=== PATIENT | male | born 1940 | race Caucasian/White ===

== ENCOUNTER 2016-09-09 17:06 | Observation (INO) ==
[2016-09-09] MEDS ORDERED: 0.9 % Sodium Chloride 500 ML IVC ONE (17:20)
--- NOTE | 2016-09-09 17:25 | Emergency Department Note ---
Disposition Clinical Impression: Acute on chronic renal failure, Hyperkalemia Disposition: Admitted As Inpatient Condition: Good [facility] Provider[facility] - Forms: ED Satisfaction Letter Recheck wound or abnormal lab - General Chief Complaint: ED Recheck/Abnormal Lab/Rx Stated Complaint: dehydration/increased K+ Time Seen by Provider: 09/09/16 17:19 Source: patient, family Mode of arrival: private vehicle Limitations: no limitations Nursing Notes Reviewed: Yes Vital Signs Reviewed: Yes - History of Present Illness HPI Narrative: Patient reports that he has had some increased weakness and just feeling unsteady. He saw his oncologist and had blood work drawn today and was called that he needed to come in because he had an elevated potassium and evidence for dehydration. He denies any nausea, vomiting or diarrhea he denies fever, chills , chest pain or shortness of breath. He has not had cough or any recent change in medicines. He does have difficulty swallowing chronically and has a feeding tube. He states he does have history of aortic valve problems for which she does need an aortic valve replacement this was to be done after he has further cancer surgery. He denies any extremity swelling or pains. He has not had any type of recent fall, injury, confusion or visual changes. He feels generally poorly but only more poor than usual. Pt Subjective Complaint: abnormal lab(s) Initial Visit (ago): hour(s) Initial Visit For: other (Routine oncology checkup) Returns Today for: other (Called for abnormal labs) Symptoms Since Prior Visit: no new symptoms Context: called for abnormal lab result Associated symptoms: malaise - Related Data Home Medications Medication Instructions Recorded Confirmed Metformin [Glucophage] 850 mg PO BID 04/09/15 09/09/16 Albuterol Sulfate [Proair 2 puff IH Q4H PRN 04/10/15 09/09/16 Respiclick] Aspirin 81 mg PO DAILY 04/10/15 09/09/16 Finasteride [Proscar] 5 mg PO DAILY 04/10/15 09/09/16 Lisinopril [Zestril] 20 mg PO BID 04/10/15 09/09/16 Terazosin [Hytrin] 5 mg PO HS 04/10/15 09/09/16 Acetaminophen [Tylenol] 650 mg PO Q6HR PRN 12/26/15 09/09/16 Atorvastatin Calcium [Lipitor] 20 mg PO HS 12/26/15 09/09/16 Pantoprazole Sodium [Protonix] 40 mg PO DAILY 12/26/15 09/09/16 Cholecalciferol (D-3) [Vitamin D] 1,000 unit PO DAILY 04/03/16 09/09/16 Docusate [Colace] 100 mg PO BID PRN 04/03/16 09/09/16 Fluticasone Propionate Nasal 2 spr NS DAILY PRN 04/03/16 09/09/16 [Flonase] Latanoprost [Xalatan] 1 drop RIGHT EYE HS 04/03/16 09/09/16 Metoprolol [Lopressor] 25 mg PO BID 07/03/16 09/09/16 Polyethylene Glycol 3350 [MiraLAX] 17 gm PO PRN PRN 09/09/16 09/09/16 Previous Rx's Medication Instructions Recorded Magic Mouthwash [Magic Mouthwash 10 ml PO QID PRN #240 ml 07/17/16 BLM] Ondansetron [Zofran] 4 mg PO Q8HR PRN #90 tablet 07/17/16 Prochlorperazine Maleate 10 mg PO Q8HR PRN #90 tablet 07/17/16 [Compazine] Oxycodone HCl [Oxycodone HCl ER] 15 mg PO BID #60 tab.er.12h 08/23/16 Promethazine [Phenergan] 25 mg PO Q8HR PRN #90 tablet 08/26/16 HYDROcodone/Acet 7.5/325 mg [[place] 1 - 2 tab PO Q4H PRN #120 tablet 08/27/16 7.5-325 mg] Metoclopramide [Reglan] 10 mg PO QIDAC #120 tablet 09/03/16 Allergies Allergy/AdvReac Type Severity Reaction Status Date / Time No Known Allergies Allergy Verified 07/26/16 03:01 All systems ED: reviewed and negative except as stated. Past Medical History - Past Medical History Attestation: Yes The following information was validated with the patient. Source: patient, old records reviewed, nursing notes reviewed Medical history: Reports: arthritis, asthma, cancer (Head and neck), COPD, coronary artery disease, diabetes, hyperlipidemia, hypertension, myocardial infarction, valvular heart disease, other Surgical history: Reports: angioplasty/stent, cataract, other (Radiation treatment for head and neck cancer) Psychiatric history: Reports: no psych history - Social History Smoking Status: Former smoker Smokeless Tobacco Status: No Alcohol use: Reports: none Drug use: Reports: none Physical Exam - General Limitations: no limitations General appearance: alert, in no apparent distress - Head Head exam: atraumatic, normocephalic, normal inspection - Eye Eye exam: Present: normal appearance, PERRL, EOMI - ENT ENT exam: normal exam, normal oropharynx, mucous membranes moist - Neck Neck exam: Present: normal inspection, full ROM, trachea midline - Chest Chest inspection: Present: normal inspection, symmetric chest wall rise - Respiratory Respiratory exam: Present: normal lung sounds bilaterally. Absent: respiratory distress, wheezes, prolonged expiratory phase - Cardiovascular Cardiovascular exam: Present: regular rate, normal rhythm, normal heart sounds. Absent: tachycardia - Abdominal Exam Abdominal exam: Present: soft, Non-Tender, normal bowel sounds. Absent: tenderness, distention, guarding, rebound, rigidity - Extremities Exam Extremities exam: Present: normal inspection, full ROM, normal capillary refill. Absent: tenderness, pedal edema - Expanded Lower Extremity Exam Neurovascular/Tendon exam: Present: normal capillary refill. Absent: motor deficit, sensory deficit, tendon deficit Gait: observed and normal - Neurological Exam Neurological exam: Present: alert, oriented X3 - Psychiatric Psychiatric exam: Present: normal affect, normal mood - Skin Skin exam: Present: warm, dry, intact, normal color. Absent: diaphoresis, erythema Course Course Narrative: 0616: Call discussed with Dr. Altman. He has accepted this patient in observation to the hospital. He does wish to continue IV fluids, administer one dose of Kayexalate and recheck a CBC and basic chemistries. Verbal orders are obtained for this observation. Vital Signs Temperature 98.0 F 09/09/16 17:07 Pulse Rate 84 09/09/16 17:07 Respiratory Rate 18 09/09/16 17:07 Blood Pressure 99/58 09/09/16 17:07 O2 Sat by Pulse Oximetry 97 09/09/16 17:07 Temperature 98.0 F 09/09/16 17:09 Pulse Rate 66 09/09/16 17:39 Respiratory Rate 17 09/09/16 17:39 Blood Pressure 109/60 09/09/16 17:39 O2 Sat by Pulse Oximetry 97 09/09/16 17:39 Oxygen Delivery Oxygen Delivery Room Air Recheck wound or abnormal lab - Medical Records Medical records reviewed: Yes I reviewed the patient's medical records. - Lab Data Lab results reviewed: Yes I reviewed the patient's lab results. Result diagrams: 09/09/16 17:30 Lab Results 09/09/16 Range/Units 17:30 Sodium 143 (136-145) mEq/L Potassium 6.1 H (3.5-4.5) mEq/L Chloride 109 (98-109) mEq/L Carbon Dioxide 23 (19-29) mEq/L BUN 61 H (8-26) mg/dL Creatinine 2.72 H (0.72-1.25) mg/dL Est GFR ( Amer) 28 L (> 60) Est GFR (Non-Af Amer) 23 L (> 60) BUN/Creatinine Ratio 22 (6-26) Glucose 111 H (70-99) mg/dL Calculated Osmolality 314 H (280-300) Calcium 9.2 (8.6-10.8) mg/dL
[2016-09-09 17:52] LABS: Calcium 9.2 mg/dL (8.6-10.8); Potassium 6.1 mEq/L (3.5-4.5)
[2016-09-09] MEDS ORDERED: Dextrose Gel 15 GM PO PRN ×2 (18:53)
[2016-09-09] MEDS ORDERED: *HR* Dextrose 50 % in Water (Syg) 50 ML SYRINGE IVP PRN (18:53)
[2016-09-09] MEDS ORDERED: Naloxone 0.4 MG/ML INJ IVP PRN (18:53)
[2016-09-09] MEDS ORDERED: Ondansetron 4 MG/2 ML VIAL IVP PRN (18:53)
[2016-09-09] MEDS ORDERED: D5% in Water 1,000 ML IV PRN (18:53)
[2016-09-09] MEDS ORDERED: *HR* HYDROcodone/Acet 7.5/325 mg TABLET PO PRN (20:41)
[2016-09-09] MEDS: 0.9 % Sodium Chloride 1,000 ML IVC SCH (20:58)
[2016-09-10] MEDS: 0.9 % Sodium Chloride 1,000 ML IVC SCH (03:31)
[2016-09-10 06:01] LABS: Basophils % 0.3 %; Hematocrit 24.6 % (37.5-50.1); Hemoglobin 7.7 g/dL (12.9-16.9); Immature Granulocytes % 0.3 % (0-4); Lymphocytes # 0.4 K/mcL (0.6-4.6); Mean Corpuscular HGB Conc 31.3 g/dL (31.6-35.5); Mean Corpuscular Hemoglobin 28.4 pg (28.0-33.3); Mean Corpuscular Volume 90.8 fL (83.0-100.0); Mean Platelet Volume 10.1 fL (9.4-12.4); Monocytes # 0.3 K/mcL (0.0-1.3); Monocytes % 10.4 %; Platelet Count 139 K/mcL (140-400); Red Blood Count 2.71 M/mcL (4.19-5.50); Red Cell Distribution Width 16.8 % (11.5-14.5)
[2016-09-10 06:08] LABS: Neutrophils # 2.4 K/mcL (1.6-8.9)
[2016-09-10 06:21] LABS: Calcium 8.6 mg/dL (8.6-10.8); Potassium 4.9 mEq/L (3.5-4.5)
[2016-09-10 06:41] VITALS: BP 140/71
[2016-09-10] MEDS ORDERED: Insulin LISPRO 300 UNITS/3 ML VIAL SQ SCH (07:30)
--- NOTE | 2016-09-10 15:19 | Internal Med History&Physical ---
Date of Encounter: 09/10/16 Time of Encounter: 15:17 Internal Medicine - H&P: HPI Chief complaint: abnormal labs Admitted From: Home Plans for Post Hospital Care: Home History of present illness: Mr. Hugo is a 76 year old male who was notified by oncologist office to go to emergency room because of abnormal labs drawn earlier today. He was admitted to [facility] floor for ongoing care needs. Past Med Surg Social Fam HX - Past Medical History Medical history: arthritis, asthma, cancer, COPD, coronary artery disease, diabetes, hyperlipidemia, hypertension, myocardial infarction, valvular heart disease, other Psychiatric history: no psych history - Past Surgical History Surgical History: angioplasty/stent, cataract, other - Social History Smoking Status: Former smoker Smokeless Tobacco Status: No Alcohol use: none Drug use: none - Family History Mother Living Status: Hx Family Cardiac Disorders: Yes Internal Medicine - H&P: Meds Metformin [Glucophage] 850 mg PO BID 04/09/15 [History] Albuterol Sulfate [Proair Respiclick] 2 puff IH Q4H PRN 04/10/15 [History] Aspirin 81 mg PO DAILY 04/10/15 [History] Finasteride [Proscar] 5 mg PO DAILY 04/10/15 [History] Lisinopril [Zestril] 20 mg PO BID 04/10/15 [History] Terazosin [Hytrin] 5 mg PO HS 04/10/15 [History] Acetaminophen [Tylenol] 650 mg PO Q6HR PRN 12/26/15 [History] Atorvastatin Calcium [Lipitor] 20 mg PO HS 12/26/15 [History] Pantoprazole Sodium [Protonix] 40 mg PO DAILY 12/26/15 [History] Cholecalciferol (D-3) [Vitamin D] 1,000 unit PO DAILY 04/03/16 [History] Docusate [Colace] 100 mg PO BID PRN 04/03/16 [History] Fluticasone Propionate Nasal [Flonase] 2 spr NS DAILY PRN 04/03/16 [History] Latanoprost [Xalatan] 1 drop RIGHT EYE HS 04/03/16 [History] Metoprolol [Lopressor] 25 mg PO BID 07/03/16 [History] Magic Mouthwash [Magic Mouthwash BLM] 10 ml PO QID PRN #240 ml 07/17/16 [Rx] Ondansetron [Zofran] 4 mg PO Q8HR PRN #90 tablet 07/17/16 [Rx] Prochlorperazine Maleate [Compazine] 10 mg PO Q8HR PRN #90 tablet 07/17/16 [Rx] Oxycodone HCl [Oxycodone HCl ER] 15 mg PO BID #60 tab.er.12h 08/23/16 [Rx] Promethazine [Phenergan] 25 mg PO Q8HR PRN #90 tablet 08/26/16 [Rx] HYDROcodone/Acet 7.5/325 mg [[place] 7.5-325 mg] 1 - 2 tab PO Q4H PRN #120 tablet 08/27/16 [Rx] Metoclopramide [Reglan] 10 mg PO QIDAC #120 tablet 09/03/16 [Rx] Polyethylene Glycol 3350 [MiraLAX] 17 gm PO PRN PRN 09/09/16 [History] Allergies No Known Allergies Allergy (Verified 07/26/16 03:01) All Systems PM: A 10-system review of systems was performed and is negative for pertinent findings except as documented above in the HPI. - Constitutional Vitals: Temp Pulse Resp BP Pulse Ox 97.8 F 75 18 140/71 97 09/10/16 06:37 09/10/16 06:37 09/10/16 06:37 09/10/16 06:37 09/10/16 06:37 Internal Med - H&P Results - Labs CBC & Chem 7: 09/10/16 05:00 09/10/16 05:00 Labs: Short CBC 09/10/16 Range/Units 05:00 WBC 3.1 L (4.3-11.1) K/mcL Hgb 7.7 L (12.9-16.9) g/dL Hct 24.6 L (37.5-50.1) % Plt Count 139 L (140-400) K/mcL Neutrophils # 2.4 (1.6-8.9) K/mcL BMP 09/10/16 05:00 Sodium 147 H Potassium 4.9 H D Chloride 112 H Carbon Dioxide 25 BUN 48 H D Creatinine 2.06 H Glucose 103 H Calcium 8.6 - VTE Documentation of Mechanical Device: Graduated compression elastic hosiery
--- NOTE | 2016-09-10 15:23 | Discharge Summary ---
Date of Encounter: 09/10/16 Time of Encounter: 15:17 - Discharge Diagnosis (1) Acute on chronic renal failure Priority: Primary Status: Acute (2) Hyperkalemia Priority: Secondary Status: Acute - Discharge Medications Home Medications: Metformin [Glucophage] 850 mg PO BID 04/09/15 [History] Albuterol Sulfate [Proair Respiclick] 2 puff IH Q4H PRN 04/10/15 [History] Aspirin 81 mg PO DAILY 04/10/15 [History] Finasteride [Proscar] 5 mg PO DAILY 04/10/15 [History] Lisinopril [Zestril] 20 mg PO BID 04/10/15 [History] Terazosin [Hytrin] 5 mg PO HS 04/10/15 [History] Acetaminophen [Tylenol] 650 mg PO Q6HR PRN 12/26/15 [History] Atorvastatin Calcium [Lipitor] 20 mg PO HS 12/26/15 [History] Pantoprazole Sodium [Protonix] 40 mg PO DAILY 12/26/15 [History] Cholecalciferol (D-3) [Vitamin D] 1,000 unit PO DAILY 04/03/16 [History] Docusate [Colace] 100 mg PO BID PRN 04/03/16 [History] Fluticasone Propionate Nasal [Flonase] 2 spr NS DAILY PRN 04/03/16 [History] Latanoprost [Xalatan] 1 drop RIGHT EYE HS 04/03/16 [History] Metoprolol [Lopressor] 25 mg PO BID 07/03/16 [History] Magic Mouthwash [Magic Mouthwash BLM] 10 ml PO QID PRN #240 ml 07/17/16 [Rx] Ondansetron [Zofran] 4 mg PO Q8HR PRN #90 tablet 07/17/16 [Rx] Prochlorperazine Maleate [Compazine] 10 mg PO Q8HR PRN #90 tablet 07/17/16 [Rx] Oxycodone HCl [Oxycodone HCl ER] 15 mg PO BID #60 tab.er.12h 08/23/16 [Rx] Promethazine [Phenergan] 25 mg PO Q8HR PRN #90 tablet 08/26/16 [Rx] HYDROcodone/Acet 7.5/325 mg [[place] 7.5-325 mg] 1 - 2 tab PO Q4H PRN #120 tablet 08/27/16 [Rx] Metoclopramide [Reglan] 10 mg PO QIDAC #120 tablet 09/03/16 [Rx] Polyethylene Glycol 3350 [MiraLAX] 17 gm PO PRN PRN 09/09/16 [History] Allergies/Adverse Reactions: Allergies No Known Allergies Allergy (Verified 07/26/16 03:01) Date of admission: 09/09/16 18:42 Primary care physician: PCP ALLEGRA - Patient Status Disposition: Left Against Medical Advice Condition: Good - Discharge Instructions [facility]: [facility] - 1 week Hospital course: Mr. Hugo is a 76 year old male who was notified by oncologist office to go to emergency room because of abnormal labs drawn earlier today. He was admitted to [facility] floor for ongoing care needs. Initial orders were written by the emergency room physician. He left AMA before I saw him on September 10. - Time Spent with Patient Total time spent providing and/or coordinating discharge services: - Constitutional Vitals: Temp Pulse Resp BP Pulse Ox 97.8 F 75 18 140/71 97 09/10/16 06:37 09/10/16 06:37 09/10/16 06:37 09/10/16 06:37 09/10/16 06:37 - VTE Documentation of Mechanical Device: Graduated compression elastic hosiery
== END 2016-09-10 09:44 | disposition left against medical advice (07) ==
LOC: INPPIK 17:06 → EMEROOPIK 17:06 → INPPIK 18:53
PROVIDERS: ADMIT Internal Medicine; ATTEND Internal Medicine